=== PATIENT | male | born 1985 | race Caucasian/White ===

== ENCOUNTER → 2022-01-01 14:22 | Outpatient (BNVA) | payer OTHER, SELFPAY | PROVIDERS: Visit Provider Internal Medicine | DX: S01.81XA Laceration without foreign body of other part of head, initial encounter (principal); W22.8XXA Striking against or struck by other objects, initial encounter | CPT/HCPCS: 99203 ==

== ENCOUNTER → 2022-01-09 09:44 | Outpatient (BNVA) | payer OTHER, SELFPAY | PROVIDERS: Visit Provider Internal Medicine | DX: S01.81XA Laceration without foreign body of other part of head, initial encounter (principal); W22.8XXA Striking against or struck by other objects, initial encounter | CPT/HCPCS: 99213 ==

== ENCOUNTER → 2022-01-18 08:49 | Outpatient (BNVA) | payer OTHER, SELFPAY | PROVIDERS: Visit Provider Internal Medicine | DX: S01.81XD Laceration without foreign body of other part of head, subsequent encounter (principal); W22.8XXD Striking against or struck by other objects, subsequent encounter | CPT/HCPCS: 99213 ==

== ENCOUNTER → 2022-01-25 09:24 | Outpatient (BNVA) | payer OTHER, SELFPAY | PROVIDERS: Visit Provider Internal Medicine | DX: R51.9 Headache, unspecified (principal); F06.8 Other specified mental disorders due to known physiological condition | CPT/HCPCS: 99213 ==

== ENCOUNTER → 2022-02-09 08:22 | Outpatient (BNVA) | payer OTHER, SELFPAY | PROVIDERS: Visit Provider Internal Medicine | DX: S06.9X0D Unspecified intracranial injury without loss of consciousness, subsequent encounter (principal); S01.81XD Laceration without foreign body of other part of head, subsequent encounter; W22.8XXD Striking against or struck by other objects, subsequent encounter; R51.9 Headache, unspecified | CPT/HCPCS: 99214 ==

== ENCOUNTER → 2022-02-23 07:52 | Outpatient (BNVA) | payer OTHER, SELFPAY | PROVIDERS: Visit Provider Internal Medicine | DX: S06.9X0D Unspecified intracranial injury without loss of consciousness, subsequent encounter (principal); W22.8XXD Striking against or struck by other objects, subsequent encounter; R41.89 Other symptoms and signs involving cognitive functions and awareness; R51.9 Headache, unspecified | CPT/HCPCS: 99213 ==

== ENCOUNTER → 2022-03-09 07:58 | Outpatient (BNVA) | payer OTHER, SELFPAY | PROVIDERS: Visit Provider Internal Medicine | DX: F07.81 Postconcussional syndrome (principal) | CPT/HCPCS: 99213 ==

== ENCOUNTER 2022-03-26 12:48 | Outpatient (RCR) | payer OTHER, SELFPAY ==
--- NOTE | 2022-04-03 12:40 | MHC.SP.ADU ---
Addendum entered and electronically signed by Nany Spencer MA, CCC-QUALITY ASSURANCE INSPECTOR 04/03/22 12:58: As a clinical stonework supervisor, I have reviewed and agree with the content of this report. Original Note: Referring provider: Lukas Sewell MD Reason for Referral: TBI, memory, cognition Type of Treatment: 50367 Standardized Cognitive Performance Testing, per hour Date of Plan of Treatment: 03/26/22 Onset of Symptoms/Illness: 12/12/21 Date Treatment Started: 03/26/22 Medical Diagnosis: History of ADHD, allergies, Bipolar, hearing loss, head injury, concussion, pneumonia Primary Speech Language Diagnosis: R41.841 Cognitive communication disorder History Adonay Mata is a 36 year old male s/p TBI referred to a speech and language evaluation by Lukas Sewell MD for his difficulties with memory and cognition. Adonay has a history of several concussions and head injuries, most recently a work-related TBI in which he took a pressurized metal seth to the front of his head in December 2021. Adonay also reported a history of ADHD, allergies, Bipolar, hearing loss, and pneumonia. Adonay was accompanied to this evaluation on 03/26/2022 by his Araceli. Adonay and his reports difficulty in the following areas: expressing thoughts, being understood by others, orientation/memory, problem solving, focusing/attention, reading, word finding, following directions, understanding what others are saying, and maintaining conversation topic d/t reportedly misunderstanding and misprocessing the information others are saying. During the patient interview, Adonay provided various examples of his cognitive challenges including difficulty filling out paperwork (writing incorrect dates, skipping sections, misinterpreting questions, needing to re-read questions), leaving ice cream out on the counter until the next morning even after walking back into the kitchen several times, walking to perform a task and then forgetting the task, and not noticing important visual stimuli around him, particularly while in a moving vehicle. Adonay?s reports that she typically needs to give Adonay important information more than once. Adonay reports that his current cognitive-linguistic challenges have affected his ability to participate in various activities of daily life. These activities include employment, [employer], driving, and various household tasks and activities with his family. Adonay has not yet seen a neurologist since the December 2021 TBI due to scheduling availability; however he has an upcoming neurology appointment at the end of April. Based on conversation with Adonay and his , their cognitive concerns can be summarized into difficulty with short term memory, executive functioning, attention, and visuospatial skills. Adonay has seen a Speech-Language Pathologist in the past for anomia following a prior brain injury. 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 Highest level of education obtained: Completed Bachelor's Current Living Situation: Lives in home with and children Assistive Devices in use: Comment: No known devices Past Speech Language Therapy: Patient reports that he saw an QUALITY ASSURANCE INSPECTOR years ago d/t anomia following brain injury Other Therapies Seen in Current Calendar Year: None reported Reported Speech, Language, Cognition difficulties: Understanding Attention Reading Memory Cognition Speaking Problem Solving Assessment Speech Production: Clinical Impression: Within Functional Limits Informal Voice Assessment: Voice Loudness: Normal Voice Nasal Resonance: Normal Voice Oral Resonance: Normal Voice Phonatory-based Quality: Normal Voice Pitch: Normal Tests of Speech & Lang Adults: Clinical Impression: Did Not Test Tests of Cognition: CLQT Clinical Impression: Impaired Adonay was administered the Cognitive Linguistic Quick Test-Plus (CLQT+). The CLQT+ is designed to measure cognitive-linguistic functioning in five cognitive domains: attention, memory, language, executive functioning, and visuospatial skills. It is intended for use for adults with acquired neurological dysfunction ages 18 to 89 years old. The following subtests of the CLQT+ were administered during this evaluation: Personal Facts: This subtest is designed to assess episodic memory, word retrieval, language comprehension, and language production. In this subtest the patient is asked questions regarding personal facts including birthdate, location, age, and address. Adonay presented with no difficulty answering these questions quickly and correctly, scoring 8 out of 8 on this subtest. Adonay does report that although he has no difficulty at present, initially following the accident recalling or recognizing his date of was particularly difficult for him. Symbol Cancellation: This subtest is designed to assess visual attention and visuospatial skills. In this task, the individual is provided with an image of a specific symbol and instructed to cross out that symbol every time it occurs on a full page of various symbols. Adonay was observed to systematically scan the symbols laterally left to right while frequently and consistently look at the model symbol pictured on the top page. He reported difficulty distinguishing between two similarly constructed shapes. Adonay completed this task in 50 seconds. Adonay accurately cancelled out all 12 symbols with no errors. He scored 12 out of 12 on this subtest. Confrontational Naming: This subtest is designed to assess the domain of language. In this task, the individual is presented with a series of 10 line drawings and asked to name each item. Adonay named all items quickly and appropriately, scoring 10 out of 10 on this subtest. Clock Drawing: This subtest is designed to be a screening tool for neurological dysfunction in its assessment of various cognitive domains including sustained attention, memory, executive functions, language, and visuospatial skills. During this task, the patient is asked given an image of a kiana and asked to draw a clock with hands set to ?ten minutes after eleven.? Adonay was observed to first draw 12 lines on his clock to stephany where the numbers should go beginning with the location of 12 and moving clockwise by one. Adonay was noted to narrate aloud what he was doing and repeat ?ten after eleven? several times. Adonay reported that he had great difficulty with the wording of ?ten after eleven? and had to work hard to determine where the long hand should point to. Adonay?s drawing itself was unremarkable, scoring 13 out of 13 on this subtest. Story Retelling: In this subtest the patient is asked to retell a short 4 sentence story that is read aloud to the patient by the clinician. This task is designed to measure attention, verbal working memory, and language (language comprehension and verbal production). Upon retell, Adonay condensed the four sentence story to three fragmented sentences, accurately recalling 9 of the 18 alba details (Wanda, got, arthur, ring, lost it, she, cried, found it, pocket): ?Wanda got a arthur ring. And she lost it and cried. And then she found it in her pocket.? The story retell task was followed by a short auditory comprehension task in which the patient was asked yes/no questions about the story. In this recognition task, Adonay answered 6 out of 6 questions correctly. This demonstrates that the use of memory strategies may support Adonay?s immediate and delayed memory. Adonay received an overall score of 6 out of 10 on the Story Retelling subtest. Symbol Trails: This subtest is designed to measure attention, executive functions (planning, working memory, mental flexibility), and visuospatial skills. The ultimate goal of this task is for the client to connect lines alternating between triangles and circles in a particular pattern as the shapes increase in size. The task begins with two trials. In the first trial the client is presented with circles of varying sizes and instructed to draw lines from the smallest to largest. In the second trial task, the patient is presented with circles and triangles and instructed to connect all the shapes, alternating between kiana and triangle. Adonay was observed to use his thumb occasionally to measure the sizes to ensure he was connecting the correct items. In the scored item Adonay connected the shapes with 9 out of 10 correct lines in 50 seconds out of the designated 3 minute time limit. He was observed to connect the second largest kiana with the largest kiana before connecting a line to the largest triangle. Following the test administration, this task was revisited and Adonay reported that he was unaware that he made any errors. Adonay scored 9 out of 10 on this subtest. Generative Naming: This subtest is designed to measure working memory, language, and executive functioning. The task requires productive thinking and mental flexibility. This subtest is divided into two tasks. First, the client is asked to name as many animals as they can in 1 minute. Second, the client is asked to name as many words that begin with the letter ?m? in 1 minute. During the second task, the client is instructed not to use proper nouns or ?the same word with a different ending? (i.e. mop, mopped, mopping). During the first task, Adonay?s responses demonstrated minimal use of semantic cluster techniques. For example, Adonay produced names of two household pets in a row, however naming of wild animals and farm animals among others were presented in a nonsystematic manner. Adonay demonstrated a decreasing number of responses over each 15 second segment. Adonay named 7 animals in the first 15 seconds and an additional 5 animals in the following 45 seconds. Adonay?s commented that their two children have been ?obsessed with? songs about a hippo and a bear, and she was surprised neither of these animals was stated during the task. During the second task, Adonay gave four responses in 45 seconds. He was observed to repetitively recite the rules aloud; notably 3 of 4 responses he gave were names (?Stephen?) or homophones of names (Jonathan/mat and Carrie//merry). The final response he was aware was in the examples, stating ?just to cheat on this one? mop.? Following his production of Stephen, Adonay self-corrected himself stating, ?Oh no, no capital letters.? Following his production of ?,? Adonay clarified ?spelled m-a-r-r-y.? There was no perseveration observed throughout either task. Adonay received a score of 3 out of 9 on the Generative Naming subtest. Design Memory: This subtest is designed to measure an individual?s immediate and working visual memory without much demand on the domain of language. The client is presented with two designs for 20 seconds then once the stimulus is removed, they are asked to select the two designs out of a vertical field of 6 designs. Adonay selected 5 out of 6 designs correctly, scoring 5 out of 6 on this subtest. Adonay?s incorrectly selected design was a similar star-shaped design with 12 points instead of the correct 9 points. Mazes: This subtest is designed to assess executive function, attention, and visuospatial skills. In this task the patient is asked to complete two mazes of increasing complexity in a particular time frame. Adonay?s performance was unremarkable. He completed each maze in roughly half the allotted time; the first maze in 26 seconds (time limit: 60 seconds) and the second maze in 68 seconds (time limit: 120 seconds). Adonay received a score of 8 out of 8 on this subtest. Design Generation: This subtest is designed to measure the cognitive domains of attention, executive functions and visuospatial skills without much demand on the domain of language. In this task, the individual is given directions to connect 4 dots using four lines and provided with two examples. The individual is given 3 minutes to make as many different designs as possible without copying the example designs. Adonay asked clarifying and strategic questions, specifically asking if he could copy the example designs and draw them ?in reverse.? Adonay xochitl 7 new designs then xochitl 3 lines of the 8th design before getting stuck. After the task was completed, Adonay and his reported that it is ?not like him? to stare at something for so long, rather than just starting over with a new design. This may be indicative that the skills of problem solving and mental flexibility may be impacted at this time. Adonay scored 7 out of 13 on this task. The domain scores of the CLQT+ are summarized below: Domain: index score, severity rating Attention: 196, WNL (within normal limits) Memory: 145, Mild Executive Functions: 27, WNL Language: 27, Mild Visuospatial Skills: 93, WNL Clock Drawin, WNL When interpreting the results of the CLQT+, it is important to note that the individual?s scores are not compared to individuals of their particular sex and age. Rather, the CLQT+?s severity ratings are compared to a broad range of all individuals ages 18-69 years old. Impressions and Recommendations Summary: Based on the results of standardized assessment using the CLQT+, Adonay presents with a mild cognitive linguistic impairment marked by difficulties in the areas of memory and language. When considering the whole clinical picture including clinical observation and patient reporting in addition to standardized testing, Adonay presents with a mild-moderate cognitive linguistic impairment marked by difficulties in the areas of memory, language, attention and executive functions of self-awareness, self-regulation, problem solving and mental flexibility. Adonay could benefit from speech therapy to improve cognitive-linguistic skills and develop compensatory strategies. Impact on Daily Function/Activity Limitations: Daily Activities: Moderate Interpersonal Interactions: Moderate Employment: Moderate/Severe Prognosis for Improvement: Good Recommendation for Speech Therapy: Outpatient Speech Therapy Frequency/Duration: 1x/week x 12 weeks Time to Reassess: 3 months Ese Teacher Goals: Adonay will improve cognitive-linguistic skills including attention, memory, language, and executive functioning. Short Term Goals: - Adonay will complete functional written language tasks (i.e. filling out paperwork) when provided with minimal support with 80% accuracy. - When given a string of numbers, Adonay will accurately repeat back numbers in reverse order in 80% of trials when provided with minimal assistance and no more than one repetition. - Adonay will recall details of information presented to him with 80% accuracy when provided with minimal assistance during delayed recall tasks. - Upon delayed recall, Adonay will recall 7-word list in 80% of trials when provided with minimal assistance. Patient Education: Completed: Yes Patient/Caregiver Education: Described Results of Evaluation Patient expressed understanding of evaluation Patient agrees with goals and treatment plan Family/Caregivers expressed understanding of results Family/Caregivers expressed agreement with goals and treatment plan It was a pleasure to meet and work with Adonay and his Araceli. If you have any questions about the contents of this report, do not hesitate to contact me at [phone] or [email or web address] Student Counselor Clinican/Clinical Fellow: Yes: Fanta Hunt M.A., CF-QUALITY ASSURANCE INSPECTOR Supervisory Statement: Yes Speech Language Pathologist: Nany Spencer M.A., CCC-QUALITY ASSURANCE INSPECTOR
== END 2022-04-05 12:41 | disposition still patient (30) ==
LOC: HO.SH 12:48
PROVIDERS: Visit Provider Internal Medicine
DX: S06.9XAD Unspecified intracranial injury with loss of consciousness status unknown, subsequent encounter (principal)
CPT/HCPCS: 96125

== ENCOUNTER → 2022-03-30 07:51 | Outpatient (BNVA) | payer OTHER, SELFPAY | PROVIDERS: Visit Provider Internal Medicine | DX: S01.81XD Laceration without foreign body of other part of head, subsequent encounter (principal); W22.8XXD Striking against or struck by other objects, subsequent encounter | CPT/HCPCS: 99213 ==

== ENCOUNTER → 2022-04-17 09:50 | Outpatient (BNVA) | payer OTHER, SELFPAY | PROVIDERS: Visit Provider Internal Medicine | DX: S06.0X0D Concussion without loss of consciousness, subsequent encounter (principal); X58.XXXD Exposure to other specified factors, subsequent encounter; R00.0 Tachycardia, unspecified | CPT/HCPCS: 99214 ==

== ENCOUNTER → 2022-04-27 08:24 | Outpatient (BNVA) | payer OTHER, SELFPAY | PROVIDERS: Visit Provider Internal Medicine | DX: S06.9X0D Unspecified intracranial injury without loss of consciousness, subsequent encounter (principal); X58.XXXD Exposure to other specified factors, subsequent encounter; R00.0 Tachycardia, unspecified | CPT/HCPCS: 99213 ==

== ENCOUNTER → 2022-05-11 11:46 | Outpatient (BNVA) | payer OTHER, SELFPAY | PROVIDERS: Visit Provider Internal Medicine | DX: S06.0X0D Concussion without loss of consciousness, subsequent encounter (principal); X58.XXXD Exposure to other specified factors, subsequent encounter | CPT/HCPCS: 99213 ==

== ENCOUNTER → 2022-06-04 08:06 | Outpatient (BNVA) | payer OTHER, SELFPAY | PROVIDERS: Visit Provider Internal Medicine | DX: S06.9X0A Unspecified intracranial injury without loss of consciousness, initial encounter (principal); X58.XXXA Exposure to other specified factors, initial encounter | CPT/HCPCS: 99213 ==

== ENCOUNTER → 2022-06-22 07:51 | Outpatient (BNVA) | payer OTHER, SELFPAY | PROVIDERS: Visit Provider Internal Medicine | DX: S01.81XD Laceration without foreign body of other part of head, subsequent encounter (principal); W22.8XXD Striking against or struck by other objects, subsequent encounter | CPT/HCPCS: 99213 ==

== ENCOUNTER 2022-06-29 09:30 | Outpatient (RCR) | payer OTHER, SELFPAY ==
--- NOTE | 2022-06-25 10:16 | MHC.SPEECHCO ---
Pt called to reschedule on 06/20. Unable to reschedule for this week. End date pushed out x1 week to facilitate return to work plans.
== END 2022-07-02 14:23 | disposition home or self-care (01) ==
LOC: HO.SH 09:30
PROVIDERS: Visit Provider Internal Medicine
DX: R41.841 Cognitive communication deficit (principal)
CPT/HCPCS: 92507